=== PATIENT | female | born 1965 ===

== ENCOUNTER 2024-02-26 09:08 | Day surgery (SDC) | payer OTHER ==
[~2024-02-26 09:08] MED LIST: BUSPAR; FLUOXETINE HCL60 MG; METROPOLOL; NORVASC5 MG PO; PRILOSEC OTC20 MG PO; PROTONIX40 MG PO; SYNTHROID100 MCG PO; TRAZODONE HCL100 MG PO; ZOCOR20 MG PO
[2024-02-26] MEDS ORDERED: PERCOCET 5-3251 EACH PO (11:55)
[2024-02-26] MEDS ORDERED: RECTICARE30 GM TOP (11:56)
[2024-02-26] MEDS ORDERED: CEFTRIAXONE SODIUM 2,000 MG VIAL IV ONE (12:00)
[2024-02-26] MEDS ORDERED: LIDOCAINE HCL 1%/EPINEPHRINE 20ML VIAL IJ ONE (12:00)
[2024-02-26] MEDS ORDERED: POVIDONE-IODINE 118 ML BOTT TOP ONE (12:00)
[2024-02-26] MEDS ORDERED: METRONIDAZOLE/SODIUM CHLORIDE 500 MG/100 ML PIGGYBACK IV ONE (12:00)
[2024-02-26] MEDS ORDERED: BUPIVACAINE HCL/PF 0.25% 50 ML VIAL IJ ONE (12:00)
[2024-02-26] MEDS ORDERED: MORPHINE SULFATE 4 MG/ML VIAL IV ONE (16:00)
== END 2024-02-26 16:45 | disposition home or self-care (01) ==
LOC: CIR.AMB 09:08
PROVIDERS: ATTEND Surgery
DX: K64.2 Third degree hemorrhoids (principal); K64.4 Residual hemorrhoidal skin tags